=== PATIENT | male | born 1995 | race American Indian/Alaskan Native ===

== ENCOUNTER 2023-12-20 10:16 | Observation (INO) | payer OTHER ==
[~2023-12-20] VITALS: Ht 188 cm; Wt 90.0 kg
[2023-12-20] VITALS (15 sets, daily range): BP systolic 108–132; BP diastolic 61–89; PULSE 55–84; RESP 12–19; TEMP 97.4; O2SAT 96–100
[2023-12-20 12:20] LABS: BASOPHILS # (AUTO) 0.1 X10'3 (0-0.2); BASOPHILS % (AUTO) 0.7 % (0-1); EOSINOPHILS % (AUTO) 0.6 % (0-6); HEMATOCRIT 43.4 % (42.0-52.0); HEMOGLOBIN 15.2 g/dl (14.0-17.9); LYMPHOCYTES # (AUTO) 2.3 X10'3 (1.1-4.8); LYMPHOCYTES % (AUTO) 28.2 % (21-51); MEAN CORPUSCULAR HEMOGLOBIN 30.6 PG (27.0-31.0); MEAN CORPUSCULAR VOLUME 87.4 FL (78-98); MEAN PLATELET VOLUME 8.1 FL (7.4-10.4); MONOCYTES # (AUTO) 0.5 X10'3 (0-0.9); MONOCYTES % (AUTO) 6.5 % (2-12); NEUTROPHILS # (AUTO) 5.1 X10'3 (1.8-7.7); PLATELET COUNT 158 X10'3 (140-440); RED BLOOD COUNT 4.97 X10'6 (4.70-6.10); RED CELL DISTRIBUTION WIDTH 13.7 % (11.5-14.5)
[2023-12-20 12:36] LABS: ALANINE AMINOTRANSFERASE 23 U/L (12-78); ALBUMIN/GLOBULIN RATIO 1.1 (1.1-1.5); ALKALINE PHOSPHATASE 39 IU/L (46-116); ANION GAP 9 (8-16); ASPARTATE AMINO TRANSFERASE 15 U/L (10-37); BILIRUBIN,TOTAL 1.1 MG/DL (0.1-1.0); BLOOD UREA NITROGEN 8 MG/DL (7-18); BUN/CREATININE RATIO 9.5 (10.0-20.0); CALCIUM 8.9 MG/DL (8.5-10.1); CHLORIDE 106 MMOL/L (99-107); CREATININE 0.84 MG/DL (0.60-1.10); GLUCOSE 95 MG/DL (70-104); LIPASE 34 U/L (16-77); POTASSIUM 4.3 MMOL/L (3.5-5.1); SODIUM 143 MMOL/L (135-145); TOTAL CARBON DIOXIDE 28.2 MMOL/L (24-32); TOTAL PROTEIN 7.8 G/DL (6.4-8.2); eCRCL 152 ML/MIN; eGFR > 90 ML/MIN
[2023-12-20 12:40] LABS: BILIRUBIN,URINE NEGATIVE (Neg); CLARITY,URINE SLIGHTLY CLOUDY (Clear); COLOR,URINE YELLOW (Yellow); GLUCOSE, URINE NEGATIVE (Neg); KETONES,URINE NEGATIVE (Neg); LEUKOCYTE ESTERASE ,URINE NEGATIVE (Neg); NITRITES, URINE NEGATIVE (Neg); OCCULT BLOOD,URINE NEGATIVE (Neg); PROTEIN,URINE NEGATIVE (Neg); UROBILINOGEN,URINE 0.2 E.U/dL (0.2-1.0)
[2023-12-20 13:06] LABS: BACTERIA,URINE NONE SEEN /HPF (Neg); UA COLLECTION TYPE CLN CATCH MIDSTREAM; WBC,URINE 0-4 /HPF (0-4)
[2023-12-20 13:07] LABS: MUCUS STRANDS NONE SEEN /LPF (Neg); SQUAMOUS EPITHELIAL CELL,UR FEW /LPF (FEW)
[2023-12-20] MEDS ORDERED: proCHLORperazine 10 MG/2 ml inj IV PRN (16:50)
[2023-12-20] MEDS ORDERED: labetalol 20mg/4ml (5mg/ml) syringe IV PRN (16:50)
[2023-12-20] MEDS ORDERED: meperidine/PF 25mg/ml syringe IV PRN ×2 (16:50)
[2023-12-20] MEDS: ringers solution, lacted 1,000 ML IV SCH ×2 (16:50→17:34)
[2023-12-20] MEDS ORDERED: enalaprilat dihydrate 2.5mg/2ml vial IV PRN (16:50)
[2023-12-20] MEDS ORDERED: morphine 4 MG/ML inj SYRINge IV PRN (16:50)
[2023-12-20] MEDS ORDERED: morphine 2 MG/ML inj. syringe IV PRN ×3 (16:50→17:25)
[2023-12-20] MEDS ORDERED: mag hydrox/Alum hydrox/simeth 30ml oral suspension PO PRN (17:25)
[2023-12-20] MEDS ORDERED: metoclopramide 5 mg/ml inj IV PRN (17:25)
[2023-12-20] MEDS ORDERED: diphenhydrAMINE 50 mg/ml inj IV PRN (17:25)
[2023-12-20] MEDS ORDERED: magnesium hydroxide 30ml (MOM) UD suspension PO PRN ×2 (17:25)
[2023-12-20] MEDS ORDERED: HYDROcodone/acetaminophen 10/325mg tab PO PRN ×2 (17:25→20:30)
[2023-12-20] MEDS ORDERED: acetaminophen 325mg tablet PO PRN ×2 (17:25)
[2023-12-20] MEDS ORDERED: HYDROmorphone inj. 0.5 MG/0.5 ML DISP.SYRIN IV PRN (17:25)
[2023-12-20] MEDS: normal saline 1000ml 1,000 ML IV SCH (17:25)
[2023-12-20] MEDS ORDERED: diphenhydrAMINE 25mg capsule PO PRN (17:25)
[2023-12-20] MEDS ORDERED: ondansetron 4mg rapidly disintigrating tab PO PRN (17:25)
[2023-12-20] MEDS ORDERED: ondansetron/PF 4mg/2ml inj IV PRN ×2 (17:25)
[2023-12-20] MEDS ORDERED: HYDROcodone/acetaminophen 5mg/325mg tablet PO PRN (17:25)
[2023-12-20] MEDS ORDERED: acetaminophen 650mg rectal suppository RC PRN (17:25)
[2023-12-20] MEDS: INDOCYANINE GREEN 25 MG/10 ML VIAL IV STA (17:28)
[2023-12-20 18:50] LABS: MAGNESIUM 2.1 MG/DL (1.5-2.4); PHOSPHORUS 4.2 MG/DL (2.3-4.5); PRO BRAIN NATRIURETIC PEPTIDE 354 PG/ML (0-125)
[2023-12-20] MEDS ORDERED: sevoflurane 250ml liquid IH ONE (19:06)
[2023-12-20] MEDS ORDERED: fentaNYL/PF 50MCG/1 ML 2ML syringe ONE (19:11)
[2023-12-20] MEDS ORDERED: midazolam 1 mg/ML 2ml injection ONE (19:12)
[2023-12-20] MEDS ORDERED: propofol inj 20 ML IV ONE (19:12)
[2023-12-20] MEDS ORDERED: LIDOcaine 1%/PF 5ML 10 MG/ML VIAL ONE (19:12)
[2023-12-20] MEDS ORDERED: rocuronium 10mg/ml inj IV ONE (19:27)
[2023-12-20] MEDS ORDERED: glycopyrrolate 0.2mg/ml inj ONE (19:30)
[2023-12-20] MEDS ORDERED: ondansetron/PF 4mg/2ml inj ONE (19:30)
[2023-12-20] MEDS ORDERED: dexamethasone sod phosphate 4mg/ml inj. ONE (19:30)
[2023-12-20] MEDS ORDERED: ceFAZolin 1000mg inj ONE ×2 (19:36)
[2023-12-20] MEDS: BUPIVAcaine/PF 2.5mg/ml (0.25%) 10ml vial ONE (19:40)
[2023-12-20] MEDS: LIDOcaine 1% 30ml preserv. free vial ONE (19:42)
[2023-12-20] MEDS ORDERED: docusate sod 100mg capsule PO SCH (20:00)
[2023-12-20] MEDS: docusate sod 100mg capsule PO SCH (20:00)
[2023-12-20] MEDS ORDERED: meperidine/PF 25mg/ml syringe ONE (20:08)
[2023-12-20] MEDS ORDERED: naloxone 0.4 mg/ml inj IV PRN (20:30)
[2023-12-20] MEDS: ondansetron/PF 4mg/2ml inj IV PRN (21:14)
[2023-12-20] MEDS: meperidine/PF 25mg/ml syringe IV PRN (21:23)
[2023-12-21] MEDS: mag hydrox/Alum hydrox/simeth 30ml oral suspension PO PRN
[2023-12-21] MEDS: HYDROcodone/acetaminophen 5mg/325mg tablet PO PRN
[2023-12-21 00:25] VITALS: BP 114/63; PULSE 79
[2023-12-21 01:25] VITALS: BP 137/96; PULSE 86
[2023-12-21 02:00] VITALS: BP 134/83; PULSE 82; RESP 16; TEMP 97.9; O2SAT 98
[2023-12-21 06:00] VITALS: BP 115/74; PULSE 86; RESP 18; TEMP 98.8; O2SAT 97
[2023-12-21 07:14] LABS: BASOPHILS % (AUTO) 0.1 % (0-1); EOSINOPHILS % (AUTO) 0 % (0-6); HEMATOCRIT 42.2 % (42.0-52.0); HEMOGLOBIN 14.7 g/dl (14.0-17.9); LYMPHOCYTES # (AUTO) 0.8 X10'3 (1.1-4.8); LYMPHOCYTES % (AUTO) 6.1 % (21-51); MEAN CORPUSCULAR HEMOGLOBIN 30.3 PG (27.0-31.0); MEAN CORPUSCULAR HGB CONC 34.9 g/dL (33.0-36.5); MEAN CORPUSCULAR VOLUME 86.9 FL (78-98); MEAN PLATELET VOLUME 8.6 FL (7.4-10.4); MONOCYTES # (AUTO) 0.3 X10'3 (0-0.9); MONOCYTES % (AUTO) 2.8 % (2-12); NEUTROPHILS # (AUTO) 11.2 X10'3 (1.8-7.7); PLATELET COUNT 146 X10'3 (140-440); RED BLOOD COUNT 4.86 X10'6 (4.70-6.10); RED CELL DISTRIBUTION WIDTH 13.4 % (11.5-14.5); WHITE BLOOD COUNT 12.3 X10'3 (4.5-11.0)
[2023-12-21 07:29] LABS: ALANINE AMINOTRANSFERASE 35 U/L (12-78); ALBUMIN 3.6 G/DL (3.4-5.0); ALKALINE PHOSPHATASE 47 IU/L (46-116); ANION GAP 8 (8-16); ASPARTATE AMINO TRANSFERASE 26 U/L (10-37); BILIRUBIN,TOTAL 1.5 MG/DL (0.1-1.0); BLOOD UREA NITROGEN 9 MG/DL (7-18); BUN/CREATININE RATIO 9.1 (10.0-20.0); CALCIUM 8.8 MG/DL (8.5-10.1); CHLORIDE 103 MMOL/L (99-107); CREATININE 0.99 MG/DL (0.60-1.10); GLUCOSE 144 MG/DL (70-104); POTASSIUM 4.4 MMOL/L (3.5-5.1); SODIUM 140 MMOL/L (135-145); TOTAL CARBON DIOXIDE 29.2 MMOL/L (24-32); TOTAL PROTEIN 7.3 G/DL (6.4-8.2); eCRCL 129 ML/MIN; eGFR 90 ML/MIN
[2023-12-21] MEDS: heparin, porcine 5000 units/ml vial SQ SCH (08:00)
[2023-12-21 08:23] VITALS: RESP 16; O2SAT 97
[2023-12-21] MEDS ORDERED: OXYC-145 PO (11:46)
[2023-12-21 12:47] VITALS: RESP 16
== END 2023-12-21 14:19 | disposition home or self-care (01) ==
LOC: ER 10:18 → ED HOLD 16:50 → ORTHO 4S 21:40
PROVIDERS: ADMIT Surgery; ATTEND Surgery
DX: K80.00 Calculus of gallbladder with acute cholecystitis without obstruction (principal); K82.1 Hydrops of gallbladder; K21.9 Gastro-esophageal reflux disease without esophagitis; Z79.899 Other long term (current) drug therapy
CPT/HCPCS: 36415; 47563; 76700; 80053; 81001; 83690; 83735; 83880; 84100; 85025; 93005; 96361; 96374; 96375; 99284; G0378; J0690; J1100; J2175; J2250; J2405; J2704; J2710; J3010; J3490; J7030; J7120; S2900; A4215; A4615; A4618; A7000